=== PATIENT | female | born 1980 | race Caucasian/White ===

== ENCOUNTER 2022-10-11 12:03 | Emergency (ER) | payer MEDICAID ==
[2022-10-11] MEDS ORDERED: Lidocaine 1% 5 ML VIAL INJECT ONE (12:33)
[2022-10-11] MEDS ORDERED: HYDROmorphone 1 MG/ML Syringe IVPUSH ONE ×2 (12:33→13:50)
[2022-10-11] MEDS ORDERED: Sodium Chloride 0.9% 1,000 ML IV ONE (12:34)
[2022-10-11] MEDS ORDERED: Ondansetron 4 MG/2 ML SDV IVPUSH ONE (12:34)
[2022-10-11 14:58] VITALS: BP 130/64; PULSE 86
== END 2022-10-11 14:56 | disposition home or self-care (01) ==
LOC: MW.ED 12:03
DX: S52.592A Other fractures of lower end of left radius, initial encounter for closed fracture (principal); E66.9 Obesity, unspecified; Z68.31 Body mass index [BMI] 31.0-31.9, adult; Z88.5 Allergy status to narcotic agent; Z79.899 Other long term (current) drug therapy; Z90.49 Acquired absence of other specified parts of digestive tract; W00.0XXA Fall on same level due to ice and snow, initial encounter
CPT/HCPCS: 29125; 73110; 96361; 96374; 96375; 96376; 99283; J1170; J2405; J7030; 25605; 29515; J3490

== ENCOUNTER 2022-10-13 11:19 | Day surgery (SDC) | payer MEDICAID ==
[~2022-10-13 11:19] MED LIST: Lactated Ringers 1,000 ML IV SCH; ceFAZolin 2 GM in Premix Bag 1 BAG IV SCH
[2022-10-13] MEDS ORDERED: fentaNYL 50 MCG/ML SDV IVPUSH PRN (12:00)
[2022-10-13] MEDS ORDERED: Albuterol 0.083% 2.5 MG/3 ML Neb Soln NEB PRN (12:00)
[2022-10-13] MEDS ORDERED: Morphine 2 MG/ML SYRINGE IVPUSH PRN (12:00)
[2022-10-13] MEDS ORDERED: Metoclopramide 10 MG/2 ML SDV IVPUSH PRN (12:00)
[2022-10-13] MEDS ORDERED: Naloxone 0.4 MG/ML SDV IVPUSH PRN (12:00)
[2022-10-13] MEDS ORDERED: HYDROmorphone 1 MG/ML Syringe IVPUSH PRN (12:00)
[2022-10-13] MEDS ORDERED: Ondansetron 4 MG/2 ML SDV IVPUSH PRN (12:00)
[2022-10-13] MEDS ORDERED: Famotidine 20 MG/2 ML SDV ONE (12:29)
[2022-10-13] MEDS ORDERED: fentaNYL 100 MCG/2 ML SDV ONE (12:30)
[2022-10-13] MEDS ORDERED: Lidocaine 1% 5 ML VIAL ONE (12:34)
[2022-10-13] MEDS ORDERED: Ropivacaine 0.5% 5 MG/ML 30 ML SDV ONE (12:35)
[2022-10-13] MEDS ORDERED: Ondansetron 4 MG/2 ML SDV ONE ×2 (12:39→13:39)
[2022-10-13] MEDS ORDERED: Propofol 200 MG/20 ML SDV ONE (13:37)
[2022-10-13] MEDS ORDERED: Ketorolac 30 MG/ML SDV ONE (13:39)
[2022-10-13] MEDS ORDERED: Sugammadex Sodium 200 MG/2 ML VIAL ONE (13:39)
[2022-10-13] MEDS ORDERED: Dexmedetomidine 200 MCG/2 ML SDV ONE (13:39)
[2022-10-13] MEDS ORDERED: Lidocaine 2% 5 ML SDV ONE (13:39)
[2022-10-13] MEDS ORDERED: Dexamethasone 4 MG/ML 5 ML MDV ONE (13:39)
[2022-10-13] MEDS ORDERED: Rocuronium 50 MG/5 ML Vial ONE (13:40)
[2022-10-13 15:43] VITALS: BP 126/63; PULSE 81
== END 2022-10-13 15:50 | disposition home or self-care (01) ==
LOC: MW.SDS 11:19
PROVIDERS: ATTEND Orthopaedic Surgery
DX: S52.502A Unspecified fracture of the lower end of left radius, initial encounter for closed fracture (principal); F41.9 Anxiety disorder, unspecified; F32.A Depression, unspecified; E03.9 Hypothyroidism, unspecified; E07.9 Disorder of thyroid, unspecified; F90.9 Attention-deficit hyperactivity disorder, unspecified type; D64.9 Anemia, unspecified; E66.9 Obesity, unspecified; F17.210 Nicotine dependence, cigarettes, uncomplicated; Z79.899 Other long term (current) drug therapy; Z88.2 Allergy status to sulfonamides; Z98.890 Other specified postprocedural states; Z79.890 Hormone replacement therapy
CPT/HCPCS: 25606; 64415; 76000; 81025; J0131; J1100; J1885; J2405; J2704; J2795; J3010; J3490; J7120; 01820

== ENCOUNTER 2023-08-01 12:39 | Emergency (ER) | payer MEDICAID ==
[2023-08-01] MEDS ORDERED: traMADol 50 MG Tab PO ONE (13:51)
[2023-08-01] MEDS ORDERED: Lidocaine 5% Oint 35.44 GM Tube TOP ONE (13:51)
[2023-08-01] MEDS ORDERED: Diphtheria,Pertussis(Acell),Tetanus Vaccine 0.5 ML Syringe IM ONE (14:09)
[2023-08-01 14:58] VITALS: BP 123/94; PULSE 103
== END 2023-08-01 15:09 | disposition home or self-care (01) ==
LOC: MW.ED 12:39
DX: T23.201A Burn of second degree of right hand, unspecified site, initial encounter (principal); E03.9 Hypothyroidism, unspecified; E66.9 Obesity, unspecified; F17.210 Nicotine dependence, cigarettes, uncomplicated; Z68.35 Body mass index [BMI] 35.0-35.9, adult; Z23 Encounter for immunization; Z88.5 Allergy status to narcotic agent; Z79.899 Other long term (current) drug therapy; X19.XXXA Contact with other heat and hot substances, initial encounter
CPT/HCPCS: 90471; 90715; 99283; A9270

== ENCOUNTER 2024-01-21 17:06 | Emergency (ER) | payer MEDICAID ==
[2024-01-21] MEDS: traMADol 50 MG Tab PO STA ×2 (17:40→20:26)
[2024-01-21 20:29] VITALS: BP 143/94; PULSE 70
== END 2024-01-21 20:27 | disposition home or self-care (01) ==
LOC: MW.ED 17:06
DX: M54.50 Low back pain, unspecified (principal); E66.9 Obesity, unspecified; E03.9 Hypothyroidism, unspecified; Z68.34 Body mass index [BMI] 34.0-34.9, adult; Z75.8 Other problems related to medical facilities and other health care; Z88.8 Allergy status to other drugs, medicaments and biological substances; Z79.84 Long term (current) use of oral hypoglycemic drugs; Z79.899 Other long term (current) drug therapy; Z90.49 Acquired absence of other specified parts of digestive tract; W10.8XXA Fall (on) (from) other stairs and steps, initial encounter
CPT/HCPCS: 72128; 72131; 72192; 99283; A9270

== ENCOUNTER 2024-07-18 02:01 | Emergency (ER) | payer MEDICAID ==
[2024-07-18 03:13] VITALS: BP 156/96; PULSE 90
== END 2024-07-18 03:25 | disposition home or self-care (01) ==
LOC: MW.ED 02:01
DX: Z02.89 Encounter for other administrative examinations (principal); Z76.0 Encounter for issue of repeat prescription; E03.9 Hypothyroidism, unspecified; E66.9 Obesity, unspecified; Z79.84 Long term (current) use of oral hypoglycemic drugs; Z79.899 Other long term (current) drug therapy; Z88.5 Allergy status to narcotic agent; Z75.8 Other problems related to medical facilities and other health care
CPT/HCPCS: 99283

== ENCOUNTER 2025-02-13 13:43 | Emergency (ER) | payer MEDICAID | END 2025-02-13 13:54 | disposition left against medical advice (07) | LOC: MW.ED 13:43 | DX: Z53.21 Procedure and treatment not carried out due to patient leaving prior to being seen by health care provider (principal) ==

== ENCOUNTER 2025-03-25 13:04 | Emergency (ER) | payer MEDICAID ==
[2025-03-25 14:18] VITALS: BP 152/65; PULSE 85
== END 2025-03-25 14:03 | disposition home or self-care (01) ==
LOC: MW.ED 13:04
DX: J40 Bronchitis, not specified as acute or chronic (principal); E66.9 Obesity, unspecified; E03.9 Hypothyroidism, unspecified; Z88.8 Allergy status to other drugs, medicaments and biological substances; Z79.84 Long term (current) use of oral hypoglycemic drugs; Z79.890 Hormone replacement therapy; Z79.01 Long term (current) use of anticoagulants; Z79.899 Other long term (current) drug therapy; Z90.49 Acquired absence of other specified parts of digestive tract; Z68.35 Body mass index [BMI] 35.0-35.9, adult
CPT/HCPCS: 99282; 99283